=== PATIENT | female | born 1960 | race Caucasian/White ===

== ENCOUNTER 2018-11-29 17:08 | Emergency (ER) | payer MEDICAID ==
[2018-11-29] MEDS: SOD CHLORIDE 0.9% 1,000 ML IV ×2 (19:25)
[2018-11-29 19:26] LABS: ADD MAN DIFF? NO
[2018-11-29 19:29] LABS: WHITE BLOOD COUNT 3.9 10^3/ul (4.8-10.8)
[2018-11-29 19:29] LABS: BASOPHILS % 0.5 % (0.0-2.0); EOSINOPHILS # 0.1 10^3/ul (0.0-0.5); EOSINOPHILS % 2.6 % (0.0-7.0); HEMATOCRIT 37.6 % (37.0-47.0); LYMPHOCYTES # 1.3 10^3/ul (0.8-2.9); LYMPHOCYTES % 32.8 % (15.0-51.0); MEAN CORPUSCULAR HEMOGLOBIN 28.6 pg (29.0-33.0); MEAN CORPUSCULAR HGB CONC 31.9 g/dl (32.0-37.0); MEAN CORPUSCULAR VOLUME 89.7 fl (82.0-101.0); MEAN PLATELET VOLUME 9.7 fl (7.4-10.4); MONOCYTE # 0.4 10^3/ul (0.3-0.9); MONOCYTES % 11.1 % (0.0-11.0); NEUTROPHILS % 52.7 % (39.0-77.0); PLATELET COUNT 241 10^3/UL (140-415); RED BLOOD COUNT 4.19 10^6/ul (4.20-5.40); RED CELL DISTRIBUTION WIDTH 12.7 % (11.5-14.5)
[2018-11-29 19:46] LABS: PARTIAL THROMBOPLASTIN TIME 27.7 Sec (23.0-35.0); PROTIME 13.3 Sec (11.9-14.9)
[2018-11-29 19:48] LABS: ALANINE AMINOTRANSFERASE 22 IU/L (13-69); ALBUMIN 3.9 g/dl (3.3-4.9); ALBUMIN/GLOBULIN RATIO 1.18; ALKALINE PHOSPHATASE 70 IU/L (42-121); AMYLASE 90 U/L (11-123); ANION GAP 4 (5-13); ASPARTATE AMINO TRANSFERASE 21 IU/L (15-46); BILIRUBIN,INDIRECT 0.5 mg/dl (0-1.1); BILIRUBIN,TOTAL 0.5 mg/dl (0.2-1.3); BLOOD UREA NITROGEN 9 mg/dl (7-20); CALCIUM 9.8 mg/dl (8.4-10.2); CARBON DIOXIDE 32 mmol/L (21-31); CHLORIDE 105 mmol/L (97-110); CREATININE 0.73 mg/dl (0.44-1.00); Estimated GFR > 60 mL/min (>60); GLUCOSE 95 mg/dl (70-220); LIPASE 108 U/L (23-300); POTASSIUM 3.4 mmol/L (3.5-5.1); SODIUM 141 mmol/L (135-144); TOTAL PROTEIN 7.2 g/dl (6.1-8.1)
[2018-11-29 20:00] LABS: TROPONIN-I < 0.012 ng/ml (0.000-0.120)
[2018-11-29 20:06] LABS: FREE THYROXINE INDEX (Calc) 2.23 ug/ml (0.65-3.89); T3 UPTAKE 29.3 % (23.5-40.5); T4 (THYROXINE) 7.6 ug/dl (5.5-11.0)
[2018-11-29 22:56] LABS: ADD UMIC YES; UR ASCORBIC ACID NEGATIVE (NEGATIVE); UR BILIRUBIN (Dip) NEGATIVE (NEGATIVE); UR BLOOD (Dip) NEGATIVE (NEGATIVE); UR CLARITY CLEAR (CLEAR); UR COLOR STRAW (YELLOW); UR GLUCOSE (Dip) NEGATIVE (NEGATIVE); UR KETONES (Dip) NEGATIVE (NEGATIVE); UR LEUKOCYTE ESTERASE (Dip) 2+ Leu/ul (NEGATIVE); UR NITRITE (Dip) NEGATIVE (NEGATIVE); UR RBC 2 /HPF (0-5); UR SPECIFIC GRAVITY (Dip) 1.004 (1.003-1.030); UR TOTAL PROTEIN (Dip) NEGATIVE (NEGATIVE); UR UROBILINOGEN (Dip) NEGATIVE (NEGATIVE); UR WBC 28 /HPF (0-5)
== END 2018-11-29 23:38 | disposition home or self-care (01) ==
LOC: E/R 17:08
DX: N30.00 Acute cystitis without hematuria (principal); Z85.3 Personal history of malignant neoplasm of breast
CPT/HCPCS: 36415; 76705; 80053; 81001; 82150; 83690; 84436; 84479; 84484; 85025; 85610; 85730; 87086; 93005; 99285-25